=== PATIENT | female | born 1990 ===

== ENCOUNTER 2017-05-01 17:06 | Emergency (ER) | payer MEDICAID ==
[2017-05-01 17:13] VITALS: RESP 20; TEMP 96.8; BMI 29.2
[2017-05-01] MEDS ORDERED: Magnesium Sulfate 2 GM in Sodium Chloride 0.9% 100 ML IVPB ONE (17:14)
[2017-05-01] MEDS: Albuterol-Ipratrop 3 mg / 0.5 (3 ml) UD IH SCH ×3 (17:15→17:41)
[2017-05-01 17:48] LABS: BASO # 0.08 K/mm3 (0.0-2.0); BASO % 0.9 % (0.0-3.0); EOS # 1.4 (0.0-0.7); EOS % 15.6 % (1.5-5.0); GRAN # 3.99 (1.4-6.5); GRAN % 45.1 % (50.0-68.0); HEMOGLOBIN 14.5 g/dL (12.0-16.0); LYMPH # 2.4 (1.2-3.4); LYMPH % 26.7 % (22.0-35.0); MEAN CELL VOLUME 88.3 fl (80.0-105.0); MEAN CORPUSCULAR HEMOGLOBIN 30.3 pg (25.0-35.0); MEAN CORPUSCULAR HGB CONC 34.3 g/dl (31.0-37.0); MEAN PLATELET VOLUME 9.3 fl (7.0-11.0); MONO % 11.7 % (1.0-6.0); RBC 4.79 10^6/uL (3.5-6.1); RED CELL DISTRIBUTION WIDTH 12.9 % (11.5-14.5); WHITE BLOOD COUNT 8.8 10^3/ul (4.5-11.0)
[2017-05-01 17:58] LABS: ALB/GLOB RATIO 1.3 (1.1-1.8); ALBUMIN 4.9 g/dL (3.0-4.8); ALT/SGPT 22 U/L (7-56); AST/SGOT 30 U/L (14-36); BLOOD UREA NITROGEN 8 mg/dL (7-21); CALCIUM 10.4 mg/dL (8.4-10.5); GFR AFRICAN-AMERICAN > 60; GFR NON-AFRICAN AMERICAN > 60
[2017-05-01 18:58] LABS: TROPONIN I < 0.01 ng/mL
[2017-05-01 19:26] VITALS: BP 131/77; PULSE 102; O2SAT 97
--- NOTE | 2017-05-01 20:12 | ED PDOC ---
Arrival/HPI - General Chief Complaint: Shortness Of Breath Time Seen by Provider: 05/01/17 17:08 Historian: Patient - History of Present Illness Narrative History of Present Illness (Text): 05/01/17 17:15 Amelia Toussaint is a 27 year old female who presents to the emergency department complaining of shortness of breath for the past couple of days. Patient denies any medical history, however, was given an albuterol pump in the past. Patient denies any cough, fever, chest pain, recent travels, sick person contact, or any other complaints at this time. Time/Duration: < week Symptom Onset: Gradual Symptom Course: Unchanged Activities at Onset: Light Context: Home Past Medical History - Provider Review Nursing Documentation Reviewed: Yes - Psychiatric Hx Substance Use: No Family/Social History - Physician Review Nursing Documentation Reviewed: Yes Family/Social History: No Known Family HX Smoking Status: Light Smoker < 10 Cigarettes Daily Hx Alcohol Use: No Hx Substance Use: No Allergies/Home Meds Allergies/Adverse Reactions: Allergies No Known Allergies Allergy (Unverified 05/01/17 17:13) Review of Systems - Physician Review All systems were reviewed & negative as marked: Yes - Review of Systems Constitutional: absent: Fevers, Night Sweats Eyes: absent: Vision Changes ENT: absent: Hearing Changes Respiratory: SOB. absent: Cough Cardiovascular: absent: Chest Pain Gastrointestinal: absent: Abdominal Pain Genitourinary Female: absent: Dysuria, Frequency Musculoskeletal: absent: Arthralgias, Back Pain Skin: absent: Rash, Pruritis Neurological: absent: Headache, Dizziness Endocrine: absent: Diaphoresis Hemo/Lymphatic: absent: Adenopathy Psychiatric: absent: Anxiety, Depression Physical Exam Vital Signs Reviewed: Yes Vital Signs Temp Pulse Resp BP Pulse Ox 05/01/17 18:55 102 H 20 131/77 97 05/01/17 17:30 20 96 05/01/17 17:12 96.8 F L 94 H 20 165/72 H 95 Temperature: Afebrile Blood Pressure: Hypertensive Pulse: Tachycardic Respiratory Rate: Normal Appearance: Positive for: Well-Appearing, Non-Toxic, Comfortable Pain Distress: Mild Mental Status: Positive for: Alert and Oriented X 3 - Systems Exam Head: Present: Atraumatic, Normocephalic Pupils: Present: PERRL Extroacular Muscles: Present: EOMI Conjunctiva: Present: Normal Mouth: Present: Moist Mucous Membranes Neck: Present: Normal Range of Motion Respiratory/Chest: Present: Wheezes (bilateral expiratory wheezes upon entry) Cardiovascular: Present: Regular Rate and Rhythm, Normal S1, S2. No: Murmurs Abdomen: Present: Normal Bowel Sounds. No: Tenderness, Distention, Peritoneal Signs Back: Present: Normal Inspection Upper Extremity: Present: Normal Inspection. No: Cyanosis, Edema Lower Extremity: Present: Normal Inspection. No: Edema Neurological: Present: GCS=15, CN II-XII Intact, Speech Normal Skin: Present: Warm, Dry, Normal Color. No: Rashes Psychiatric: Present: Alert, Oriented x 3, Normal Insight, Normal Concentration Medical Decision Making ED Course and Treatment: 05/01/17 20:14 Impression: 27 year old female complaining of shortness of breath for the past couple of days. Plan: -- EKG -- Chest X-ray -- Labs -- IV fluids and Solu-medrol -- Reassess and disposition Progress Notes: EKG: Ordered, reviewed, and independently interpreted the EKG. Rate : 75 BPM Rhythm : NSR Interpretation : Line [place] deviation. 05/01/17 20:58 On reevaluation, patient is feeling better. Lungs are clear. - Lab Interpretations Lab Results: 05/01/17 17:30 05/01/17 17:30 Lab Results 05/01/17 17:30: Influenza Typ A,B (EIA) Negative for flu a/b 05/01/17 17:30: Sodium 143, Potassium 4.3, Chloride 102, Carbon Dioxide 27, Anion Gap 18, BUN 8, Creatinine 0.5 L, Est GFR ( Amer) > 60, Est GFR (Non -Af Amer) > 60, Random Glucose 102, Calcium 10.4, Total Bilirubin 0.5, AST 30, ALT 22, Alkaline Phosphatase 91, Lactate Dehydrogenase 368, Total Creatine Kinase 62, Troponin I < 0.01, Total Protein 8.7 H, Albumin 4.9 H, Globulin 3.8, Albumin/Globulin Ratio 1.3 05/01/17 17:30: D-Dimer, Quantitative < 200 05/01/17 17:30: WBC 8.8, RBC 4.79, Hgb 14.5, Hct 42.3, MCV 88.3, MCH 30.3, MCHC 34.3, RDW 12.9, Plt Count 326, MPV 9.3, Gran % 45.1 L, Lymph % (Auto) 26.7, [place] % (Auto) 11.7 H, Eos % (Auto) 15.6 H, Baso % (Auto) 0.9, Gran # 3.99, Lymph # (Auto) 2.4, [place] # (Auto) 1.0 H, Eos # (Auto) 1.4 H, Baso # (Auto) 0.08 I have reviewed the lab results: Yes - RAD Interpretation Radiology Orders: 05/01/17 17:13 CHEST PORTABLE [RAD] Stat - Medication Orders Current Medication Orders: Discontinued Medications Albuterol/Ipratropium (Duoneb 3 Mg/0.5 Mg (3 Ml) Ud) 3 ml IH Q15M ROCÍO Stop: 05/01/17 17:46 Last Admin: 05/01/17 17:41 Dose: 3 ml Magnesium Sulfate 2 gm/ Sodium (Chloride) 104 mls @ 102 mls/hr IVPB ONCE ONE Stop: 05/01/17 18:15 Last Admin: 05/01/17 17:42 Dose: 102 mls/hr eMAR Start Stop Document 05/01/17 17:42 LAURA (Rec: 05/01/17 17:42 LAURA [id number]) Intravenous Solution Start Date 05/01/17 Start Time 17:42 End Date 05/01/17 End time 18:42 Total Infusion Time 60 Methylprednisolone (Solu-Medrol) 125 mg IVP STAT STA Stop: 05/01/17 17:14 Last Admin: 05/01/17 17:40 Dose: 125 mg IVP Administration Document 05/01/17 17:40 SZA (Rec: 05/01/17 17:40 LAURA [id number]) Charges for Administration # of IVP Administrations 1 - Scribe Statement The provider has reviewed the documentation as recorded by the Nereida Crowley Provider Scribe Attestation: All medical record entries made by the Scribe were at my direction and personally dictated by me. I have reviewed the chart and agree that the record accurately reflects my personal performance of the history, physical exam, medical decision making, and the department course for this patient. I have also personally directed, reviewed, and agree with the discharge instructions and disposition. Disposition/Present on Arrival - Present on Arrival Any Indicators Present on Arrival: No History of DVT/PE: No History of Uncontrolled Diabetes: No Urinary Catheter: No History of Decub. Ulcer: No History Surgical Site Infection Following: None - Disposition Have Diagnosis and Disposition been Completed?: Yes Diagnosis: Reactive airway disease with wheezing Disposition: HOME/ ROUTINE Disposition Time: 19:15 Patient Problems: Current Active Problems Problem Status Onset Reactive airway disease with wheezing Acute Condition: IMPROVED Discharge Instructions (ExitCare): Asthma, Adult (DC), How to Use Your Metered Dose Inhaler (Adults) Additional Instructions: Thank you for letting us take care of you today. The emergency medical care you received today was directed at your acute symptoms. If you were prescribed any medication, please fill it and take as directed. It may take several days for your symptoms to resolve. Return to the Emergency Department if your symptoms worsen, do not improve, or if you have any other problems. Please contact your doctor or call one of the physicians/clinics you have been referred to that are listed on the Patient Visit Information form that is included in your discharge packet. Bring any paperwork you were given at discharge with you along with any medications you are taking to your follow up visit. Our treatment cannot replace ongoing medical care by a primary care provider (PCP) outside of the emergency department. Thank you for allowing the [facility] team to be part of your care today. Follow up with your doctor in 2-3 days for re-evaluation and further management. Prescriptions: Albuterol HFA [Ventolin HFA 90 mcg/actuation (8 g)] 2 puff IH [id number] PRN #1 puff PRN Reason: Wheezing Fluticasone Propionate [Flovent Hfa] 2 appl IH BID #1 aer.w.adap predniSONE [Prednisone] 40 mg PO DAILY #10 tab [facility] [Primary Care Provider[facility] - Follow up with primary Forms: [employer] ([employer]), WORK NOTE
--- NOTE | 2017-05-01 23:41 | CARD ---
APPROVED REPORT EKG Measurement Heart [id number] <Conclusion> Normal sinus rhythm Rightward axis Borderline ECG
--- NOTE | 2017-05-02 08:29 | RAD ---
HISTORY: SOB COMPARISON: No prior. FINDINGS: LUNGS: No active pulmonary disease. PLEURA: No significant pleural effusion identified, no pneumothorax apparent. CARDIOVASCULAR: Normal. OSSEOUS STRUCTURES: No significant abnormalities. VISUALIZED UPPER ABDOMEN: Normal. OTHER FINDINGS: None. IMPRESSION: No active disease.
== END 2017-05-01 21:00 | disposition home or self-care (01) ==
LOC: ED 17:06
DX: J45.909 Unspecified asthma, uncomplicated (principal); F17.210 Nicotine dependence, cigarettes, uncomplicated
CPT/HCPCS: 71045; 80053; 82550; 83615; 84484; 85025; 85378; 87804; 93005; 96365; 96375; 99284; J2930; J3475

== ENCOUNTER 2017-05-11 12:15 | Emergency (ER) | payer MEDICAID ==
[2017-05-11 12:16] VITALS: BMI 29.2
[2017-05-11 13:07] VITALS: RESP 18
[2017-05-11] MEDS ORDERED: Sodium Chloride 0.9% 1,000 ML IV STA (13:29)
[2017-05-11] MEDS ORDERED: Albuterol-Ipratrop 3 mg / 0.5 (3 ml) UD IH STA (13:30)
--- NOTE | 2017-05-11 13:42 | ED PDOC ---
Arrival/HPI - General Chief Complaint: Flu-like Symptoms Time Seen by Provider: 05/11/17 13:12 Historian: Patient - History of Present Illness Narrative History of Present Illness (Text): 05/11/17 13:25 A 27 year old female, with no significant past medical history, presents to the emergency department complaining bodyaches, chest pain (worsens when breathing and coughing), cough (with phlegm), headache, rhinorrhea, and fever. States diagnosed with asthma 3 days ago and was given a pump. Patient denies any nasal congestion. Also, patient has not had flu shot this year, and denies any recent travel (including no recent car-rides). PMD: Located in [place], [place]. Past Medical History - Provider Review Nursing Documentation Reviewed: Yes - Cardiac Hx Cardiac Disorders: No - Pulmonary Hx Respiratory Disorders: Yes Hx Asthma: Yes - Neurological Hx Neurological Disorder: No - HEENT Hx HEENT Disorder: No - Renal Hx Renal Disorder: No - Endocrine/Metabolic Hx Endocrine Disorders: No - Hematological/Oncological Hx Blood Disorders: No - Integumentary Hx Dermatological Disorder: No - Musculoskeletal/Rheumatological Hx Musculoskeletal Disorders: No - Gastrointestinal Hx Gastrointestinal Disorders: No - Genitourinary/Gynecological Hx Genitourinary Disorders: No - Psychiatric Hx Psychophysiologic Disorder: No Hx Substance Use: No Family/Social History - Physician Review Nursing Documentation Reviewed: Yes Family/Social History: No Known Family HX Smoking Status: Light Smoker < 10 Cigarettes Daily Hx Alcohol Use: No Hx Substance Use: No Allergies/Home Meds Allergies/Adverse Reactions: Allergies No Known Allergies Allergy (Unverified 05/11/17 12:29) Review of Systems - Physician Review All systems were reviewed & negative as marked: Yes - Review of Systems Constitutional: Fevers ENT: absent: Sinus Congestion Respiratory: Cough (with phelgm, worsens chest pain ). absent: SOB Cardiovascular: Chest Pain (worsens with breathing and coughing) Musculoskeletal: Other (bodyaches) Neurological: Headache Physical Exam Vital Signs Reviewed: Yes Vital Signs Temp Pulse Resp BP Pulse Ox 05/11/17 14:33 100 F H 88 18 116/73 97 05/11/17 13:06 102.0 F H 115 H 18 130/80 100 05/11/17 12:30 102.0 F H 115 H 19 130/80 100 Temperature: Febrile Blood Pressure: Normal Pulse: Tachycardic Respiratory Rate: Normal Appearance: Positive for: Well-Appearing Pain Distress: None Mental Status: Positive for: Alert and Oriented X 3 - Systems Exam Head: Present: Atraumatic, Normocephalic Pupils: Present: PERRL Extroacular Muscles: Present: EOMI Conjunctiva: Present: Normal Mouth: Present: Moist Mucous Membranes Nose (Internal): Present: Other (nasal congestion) Neck: Present: Normal Range of Motion. No: Meningeal Signs Respiratory/Chest: Present: Clear to Auscultation, Good Air Exchange. No: Respiratory Distress, Wheezes, Retracting Cardiovascular: Present: Regular Rate and Rhythm, Normal S1, S2, Other (chest wall tenderness). No: Murmurs Abdomen: No: Tenderness, Distention, Peritoneal Signs Back: Present: Normal Inspection Upper Extremity: Present: Normal Inspection. No: Cyanosis, Edema Lower Extremity: Present: Tenderness (anterior shins bilaterally) Neurological: Present: GCS=15, CN II-XII Intact, Speech Normal Skin: Present: Warm, Dry, Normal Color. No: Rashes Psychiatric: Present: Alert, Oriented x 3, Normal Insight, Normal Concentration Medical Decision Making ED Course and Treatment: 05/11/17 13:29 Impression: 27 year old female with bodyaches, fever, cough and posttussive chest pain Differential Diagnosis included but are not limited to: Bronchitis vs. Viral Infection vs. Pneumonia. Plan: -- Chest X-ray -- Labs -- Tylenol -- Duoneb -- IV Fluids -- Influenza A B Stat -- Reassess and disposition Prior Visits: Notes and results from previous visits were reviewed. Patient was last seen in the emergency department on 05/01/2017 for shortness of breath. Patient was discharge home. Progress Notes: 05/11/2017 14:23 Chest X-ray IMPRESSION: No active disease. Dictator: Good Perry MD Labs reviewed. WBC 8. Influenza positive. Treated with IVF and Tamiflu. Patient hydrated well and feels much better. She also stated that the breathing treatment helped. She was instructed to make sure to follow up with a primary care doctor and to return to the ED if symptoms worsen or any other concern. - Lab Interpretations Lab Results: 05/11/17 13:40 05/11/17 13:40 Lab Results 05/11/17 13:40: Sodium 134, Potassium 4.1, Chloride 101, Carbon Dioxide 25, Anion Gap 13, BUN 8, Creatinine 0.6 L, Est GFR ( Amer) > 60, Est GFR (Non -Af Amer) > 60, Random Glucose 115 H, Calcium 9.9, Magnesium 1.9, Total Creatine Kinase 35 05/11/17 13:40: Influenza Typ A,B (EIA) Pos for influenza b H 05/11/17 13:40: WBC 8.2, RBC 4.64, Hgb 14.0, Hct 41.2, MCV 88.8, MCH 30.2, MCHC 34.0, RDW 13.6, Plt Count 218, MPV 9.4, Gran % 70.0 H, Lymph % (Auto) 18.8 L, [place] % (Auto) 11.0 H, Eos % (Auto) 0.1 L, Baso % (Auto) 0.1, Gran # 5.76, Lymph # (Auto) 1.6, [place] # (Auto) 0.9 H, Eos # (Auto) 0.0, Baso # (Auto) 0.01 I have reviewed the lab results: Yes - RAD Interpretation Radiology Orders: 05/11/17 13:29 CHEST TWO VIEWS (PA/LAT) [RAD] Stat - Medication Orders Current Medication Orders: Discontinued Medications Acetaminophen (Tylenol 325mg Tab) 975 mg PO STAT STA Stop: 05/11/17 13:30 Last Admin: 05/11/17 13:43 Dose: 975 mg Albuterol/Ipratropium (Duoneb 3 Mg/0.5 Mg (3 Ml) Ud) 3 ml IH STAT STA Stop: 05/11/17 13:31 Last Admin: 05/11/17 13:44 Dose: 3 ml Sodium Chloride (Sodium Chloride 0.9%) 1,000 mls @ 999 mls/hr IV .Q1H1M STA Stop: 05/11/17 14:29 Last Admin: 05/11/17 13:43 Dose: 999 mls/hr eMAR Start Stop Document 05/11/17 13:43 GMD (Rec: 05/11/17 13:43 GMD [id number]) Intravenous Solution Start Date 05/11/17 Start Time 13:43 End Date 05/11/17 End time 14:43 Total Infusion Time 60 Oseltamivir Phosphate (Tamiflu Cap) 75 mg PO STAT STA PRN Reason: Protocol Stop: 05/11/17 14:14 Last Admin: 05/11/17 14:37 Dose: 75 mg - Scribe Statement The provider has reviewed the documentation as recorded by the Nereida Grover Provider Scribe Attestation: All medical record entries made by the Scribe were at my direction and personally dictated by me. I have reviewed the chart and agree that the record accurately reflects my personal performance of the history, physical exam, medical decision making, and the department course for this patient. I have also personally directed, reviewed, and agree with the discharge instructions and disposition. Disposition/Present on Arrival - Present on Arrival Any Indicators Present on Arrival: No History of DVT/PE: No History of Uncontrolled Diabetes: No Urinary Catheter: No History of Decub. Ulcer: No History Surgical Site Infection Following: None - Disposition Have Diagnosis and Disposition been Completed?: Yes Diagnosis: Influenza Disposition: HOME/ ROUTINE Disposition Time: 15:00 Patient Plan: Discharge Condition: IMPROVED Discharge Instructions (ExitCare): Flu, Adult (DC) Additional Instructions: Ms Toussaint, thank you for letting us take care of you today. Your provider was Dr. Heath. You were treated for Influenza. The emergency medical care you received today was directed at your acute symptoms. If you were prescribed any medication, please fill it and take as directed. It may take several days for your symptoms to resolve. Return to the Emergency Department if your symptoms worsen, do not improve, or if you have any other problems. Please contact your doctor or call one of the physicians/clinics you have been referred to that are listed on the Patient Visit Information form that is included in your discharge packet. Bring any paperwork you were given at discharge with you along with any medications you are taking to your follow up visit. Our treatment cannot replace ongoing medical care by a primary care provider (PCP) outside of the emergency department. Thank you for allowing the [facility] team to be part of your care today. If you had an X-Ray or CT scan: A Radiologist will review the ED reading if any change in treatment is needed we will contact you. If you had a blood, urine, or wound culture: It will take several days for the results, if any change in treatment is needed we will contact you. If you had an STI test: It will take 48 hours for the results. Please call after 1 week if you have not heard back. Prescriptions: Albuterol HFA [Ventolin HFA 90 mcg/actuation (8 g)] 2 puff IH Q4 #1 puff guaiFENesin/Dextromethorphan [guaiFENesin-DM] 10 ml PO Q8 #1 bottle Oseltamivir Phosphate [Tamiflu] 75 mg PO BID #10 capsule Referrals: [facility] [place]] - Follow up with primary Forms: [employer] (E[place]ian), WORK NOTE
[2017-05-11 13:51] LABS: BASO # 0.01 K/mm3 (0.0-2.0); BASO % 0.1 % (0.0-3.0); EOS % 0.1 % (1.5-5.0); GRAN # 5.76 (1.4-6.5); LYMPH # 1.6 (1.2-3.4); LYMPH % 18.8 % (22.0-35.0); MEAN CELL VOLUME 88.8 fl (80.0-105.0); MEAN CORPUSCULAR HEMOGLOBIN 30.2 pg (25.0-35.0); MEAN PLATELET VOLUME 9.4 fl (7.0-11.0); MONO # 0.9 (0.1-0.6); RBC 4.64 10^6/uL (3.5-6.1); RED CELL DISTRIBUTION WIDTH 13.6 % (11.5-14.5); WHITE BLOOD COUNT 8.2 10^3/ul (4.5-11.0)
[2017-05-11 14:03] LABS: BLOOD UREA NITROGEN 8 mg/dL (7-21); CALCIUM 9.9 mg/dL (8.4-10.5); GFR AFRICAN-AMERICAN > 60; GFR NON-AFRICAN AMERICAN > 60
--- NOTE | 2017-05-11 14:25 | RAD ---
HISTORY: cough r/o pna COMPARISON: 05/01/2017 TECHNIQUE: Chest PA and lateral FINDINGS: LUNGS: No active pulmonary disease. PLEURA: No significant pleural effusion identified. No pneumothorax apparent. CARDIOVASCULAR: Normal. OSSEOUS STRUCTURES: No significant abnormalities. VISUALIZED UPPER ABDOMEN: Normal. OTHER FINDINGS: None. IMPRESSION: No active disease.
[2017-05-11 14:34] VITALS: BP 116/73; PULSE 88; TEMP 100; O2SAT 97
== END 2017-05-11 15:09 | disposition home or self-care (01) ==
LOC: ED 12:15
DX: J11.1 Influenza due to unidentified influenza virus with other respiratory manifestations (principal); F17.210 Nicotine dependence, cigarettes, uncomplicated
CPT/HCPCS: 71046; 80048; 82550; 83735; 85025; 87804; 94640; 96360; 99283; J7040

== ENCOUNTER 2018-03-09 10:08 | Emergency (ER) | payer MEDICAID ==
[2018-03-09 10:25] VITALS: BP 121/83; PULSE 74; RESP 18; TEMP 98.3; O2SAT 97; BMI 28.3
--- NOTE | 2018-03-09 10:49 | ED PDOC ---
Arrival/HPI - General Chief Complaint: Finger,Hand,&Wrist Time Seen by Provider: 03/09/18 10:11 Historian: Patient - History of Present Illness Narrative History of Present Illness (Text): 03/09/18 10:39 28yo female with past medical history of Asthma who present with complaint of right hand pain, swelling, discharge and skin dryness x one week. States she have had similar rash in other parts of her body, but never her hand. States she started having discharge and pain to the hand this time. Denies fever, chills, any other complaint. states her Aunt gave her Psoriasis medication once for the rash and it cleared. She have not seen a Doctor for the rash before. Past Medical History - Provider Review Nursing Documentation Reviewed: Yes - Infectious Disease Hx of Infectious Diseases: None - Reproductive Currently : No - Cardiac Hx Cardiac Disorders: No - Pulmonary Hx Respiratory Disorders: Yes Hx Asthma: Yes - Neurological Hx Neurological Disorder: No - HEENT Hx HEENT Disorder: No - Renal Hx Renal Disorder: No - Endocrine/Metabolic Hx Endocrine Disorders: No - Hematological/Oncological Hx Blood Disorders: No - Integumentary Hx Dermatological Disorder: No - Musculoskeletal/Rheumatological Hx Musculoskeletal Disorders: No - Gastrointestinal Hx Gastrointestinal Disorders: No - Genitourinary/Gynecological Hx Genitourinary Disorders: No - Psychiatric Hx Psychophysiologic Disorder: No Hx Substance Use: No Family/Social History - Physician Review Nursing Documentation Reviewed: Yes Family/Social History: Unknown Family HX Smoking Status: Light Smoker < 10 Cigarettes Daily Hx Alcohol Use: No Hx Substance Use: No Allergies/Home Meds Allergies/Adverse Reactions: Allergies No Known Allergies Allergy (Unverified 05/11/17 12:29) Review of Systems - Physician Review All systems were reviewed & negative as marked: Yes - Review of Systems Constitutional: Normal Eyes: Normal ENT: Normal Respiratory: Normal Cardiovascular: Normal Gastrointestinal: Normal Genitourinary Female: Normal Musculoskeletal: Normal Skin: Rash (Right hand) Neurological: Normal Endocrine: Normal Hemo/Lymphatic: Normal Psychiatric: Normal Physical Exam Vital Signs Reviewed: Yes Vital Signs Temp Pulse Resp BP Pulse Ox 03/09/18 10:24 98.3 F 74 18 121/83 97 Temperature: Afebrile Blood Pressure: Normal Pulse: Regular Respiratory Rate: Normal Appearance: Positive for: Well-Appearing, Non-Toxic, Comfortable Pain Distress: None Mental Status: Positive for: Alert and Oriented X 3 - Systems Exam Head: Present: Atraumatic, Normocephalic Pupils: Present: PERRL Extroacular Muscles: Present: EOMI Conjunctiva: Present: Normal Mouth: Present: Moist Mucous Membranes Neck: Present: Normal Range of Motion Respiratory/Chest: Present: Clear to Auscultation, Good Air Exchange. No: Respiratory Distress, Accessory Muscle Use Cardiovascular: Present: Regular Rate and Rhythm, Normal S1, S2. No: Murmurs Abdomen: No: Tenderness, Distention, Peritoneal Signs Back: Present: Normal Inspection Upper Extremity: Present: Normal Inspection. No: Cyanosis, Edema Lower Extremity: Present: Normal Inspection. No: Edema Neurological: Present: GCS=15, CN II-XII Intact, Speech Normal Skin: Present: Warm, Dry, Rashes (Papular and dry scaly rash with areas of opening on the lateral 4th finger with blood), Normal Color Psychiatric: Present: Alert, Oriented x 3, Normal Insight, Normal Concentration Disposition/Present on Arrival - Present on Arrival Any Indicators Present on Arrival: No History of DVT/PE: No History of Uncontrolled Diabetes: No Urinary Catheter: No History of Decub. Ulcer: No History Surgical Site Infection Following: None - Disposition Have Diagnosis and Disposition been Completed?: Yes Diagnosis: Rash Disposition: HOME/ ROUTINE Disposition Time: 10:55 Patient Plan: Discharge Condition: STABLE Discharge Instructions (ExitCare): Skin Rash Additional Instructions: Follow up with a Professor Of German Return to Emergency department for any new symptoms Prescriptions: Cephalexin [Keflex] 500 mg PO TID #21 capsule Referrals: Mason Blackwell MD [Staff Provider] - Follow up with primary Forms: [employer] ([place]an)
== END 2018-03-09 11:15 | disposition home or self-care (01) ==
LOC: ED 10:08
DX: R21 Rash and other nonspecific skin eruption (principal); F17.210 Nicotine dependence, cigarettes, uncomplicated